=== PATIENT | male | born 1995 | race American Indian/Alaskan Native ===

== ENCOUNTER 2021-01-11 11:28 | Emergency (ER) | payer OTHER, BC, SELFPAY ==
--- NOTE | ~2021-01-11 | XR_ITS ---
XR cervical spine 4-5V INDICATION: Status post fall. Neck pain. TECHNIQUE: 5 views of the cervical spine. FINDINGS: No prior studies for comparison. The cervical spine is visualized to the cervicothoracic junction. There is no prevertebral soft tiss ue swelling, listhesis, or loss of vertebral body height. Intervertebral disc spaces are normal. Th e osseous central canal is patent. No displaced cervical spine fractures are identified. IMPRESSION: 1. No acute osseous abnormality of the cervical spine. Reviewed, dictated and finalized at location B.
--- NOTE | ~2021-01-11 | XR_ITS ---
XR shoulder RT min 2V 01/11/2021 11:50 INDICATION: Right shoulder pain after fall PROCEDURE: 4 views right shoulder COMPARISON: No prior studies for comparison. FINDINGS: Fracture, dislocation or subluxation is not identified. The soft tissues appear within norm al limits. No foreign bodies are identified. IMPRESSION: 1: NO ACUTE BONE OR JOINT ABNORMALITY IDENTIFIED. Reviewed, dictated and finalized at location B.
--- NOTE | 2021-01-11 11:30 | ED.UPPEXIN ---
HPI - Extremity Injury (Upper) General Chief Complaint: Extremity Injury, Upper Stated Complaint: R SHOULDER/NECK/BACK INJURY Time Seen by Provider: 01/11/21 11:31 Source: patient and RN notes reviewed History of Present Illness HPI narrative: Patient is a 25-year-old male who presents the urgent care with complaints of right shoulder, right neck and right upper back pain after slipping off a curb while at work today. Patient states he works for [employer] and was outside at home and slipped falling onto his right shoulder. Patient states the incident happened approximately 1 hour prior to arrival. Patient has not done anything [id number] for his pain. Patient did not hit his head and denies of any other injuries. No other acute complaints. No acute distress noted. Patient read the plan of care. Some parts of this dictation were generated by voice recognition software and may contain typographical and/or grammatical inaccuracies. Related Data Allergies Allergy/AdvReac Type Severity Reaction Status Date / Time No Known Allergies Allergy Mild Verified 11/11/12 01:15 Review of Systems Review of Systems: CONSTITUTIONAL: Denies fever, chills, or sweats. EYES: Denies visual changes, redness, or discharge. ENT: Denies rhinorrhea, congestion, sore throat, or otalgia. CARDIOVASCULAR: Denies chest pain, palpitations, or edema. RESPIRATORY: Denies cough or dyspnea. GASTROINTESTINAL: Denies abdominal pain, nausea, vomiting, or diarrhea. GENITOURINARY: Denies dysuria or hematuria. SKIN: Denies rash or itching. MUSCULOSKELETAL: Reports of neck pain, upper back pain and right shoulder pain NEUROLOGIC: Denies headache, numbness, or weakness. All other systems reviewed are negative, except as documented in HPI. PMFSH Social History Social History Smoking status: Never smoker Alcohol intake: never Comments At the time of my signature, I reviewed and agree with the nursing past medical, surgical, social, and family history. There is no relevant family history pertinent to the patient complaint. Exam Narrative: GENERAL: This is a well-nourished, well-developed patient, in no apparent distress. HEAD: normocephalic, atraumatic. EYES: PERRL. Sclera clear/white. Vision is grossly intact. EARS: External ears normal NOSE: External nose normal with no obvious nasal discharge, nares without redness, no rhinorrhea. THROAT: Mucous membranes moist NECK: Chin tuck, head left and left flexion within normal limits. moderate pain with right flexion. Moderate posterior and right cervical tenderness CARDIOVASCULAR: Regular rate and rhythm without murmurs, gallops, or rubs. RESPIRATORY: Clear to auscultation. Breath sounds equal bilaterally. No wheezes, rales, or rhonchi. SKIN: warm, intact with no suspicious lesions or rash, good texture and turgor. NEURO: awake, alert, and oriented to person, place and time. There were no obvious focal neurologic abnormalities. EXTREMITIES: Moderate tenderness to posterior right shoulder/scapular region, anterior right shoulder joint spaces, and lateral right shoulder. Positive strong right radial pulse with capillary refill less than 2 seconds. Range of motion to right upper extremity not tested due to pain. Inability to abduct the shoulder. BACK: Mild to moderate right upper back tenderness without crepitus Course Vital Signs Vital signs: Vital Signs Temperature 98.7 F 01/11/21 11:36 Pulse Rate 95 01/11/21 11:36 Respiratory Rate 16 01/11/21 11:36 Blood Pressure 169/92 H 01/11/21 11:36 Pulse Oximetry 99 01/11/21 11:36 Temperature 98.7 F 01/11/21 11:37 Pulse Rate 95 01/11/21 11:37 Respiratory Rate 16 01/11/21 11:37 Blood Pressure 169/92 H 01/11/21 11:37 Pulse Oximetry 99 01/11/21 11:37 Reviewed-patient is informed that they may have pre-hypertension or hypertension based on a blood pressure reading in the department. I recommend the patient call the primary care provider
[2021-01-11 11:36] VITALS: BP 169/92; PULSE 95; RESP 16; TEMP 37.1; O2SAT 99
[2021-01-11 11:37] VITALS: BP 169/92; PULSE 95; RESP 16; TEMP 37.1; O2SAT 99
== END 2021-01-11 12:18 | disposition home or self-care (01) ==
PROVIDERS: Emergency Provider Nurse Practitioner Family; PCP Internal Medicine
DX: M54.2 Cervicalgia (principal); M54.6 Pain in thoracic spine; S49.91XA Unspecified injury of right shoulder and upper arm, initial encounter; W00.1XXA Fall from stairs and steps due to ice and snow, initial encounter
CPT/HCPCS: 72050; 73030; 99203; G0463